=== PATIENT | male | born 1990 | race Caucasian/White ===

== ENCOUNTER 2017-02-05 09:42 | Inpatient (IN) | payer OTHER ==
--- NOTE | ~2017-02-05 | HP ---
Unit #: [id number] #: [id number] Patient: RAFAELA CALDERON [id number] [place] [address] [id number] I MR#: [id number] NAME: RAFAELA CALDERON ROOM: P208 Age: 26 Sex: M Admission Date: 02/05/2017 : 1990 Attending Physician: Alan Villavicencio M.D. Admitting Physician: Alan Villavicencio M.D. Primary Care Physician: Primary Care Physician No HISTORY AND PHYSICAL HISTORY OF PRESENT ILLNESS The patient is a 26-year-old male admitted to [address] [place] [address] on 02/05/2017 to withdrawal from methamphetamines and heroin. PAST MEDICAL HISTORY Hepatitis C. PAST SURGICAL HISTORY The patient denies. SOCIAL HISTORY He is unemployed and homeless. He smokes one pack of cigarettes daily. Drinks a fifth of alcohol per day and uses heroin, methamphetamines and Xanax on a daily basis. FAMILY MEDICAL HISTORY Noncontributory. ALLERGIES No known drug allergies. CURRENT MEDICATIONS The patient is not on any home medications. REVIEW OF SYSTEMS CONSTITUTIONAL: No fever or chills. HEENT: Denies any sore throat, ear pain or runny nose. CARDIOVASCULAR: Denies chest pain, irregular heart rhythm or palpitations. CHEST: Denies shortness of breath or cough. No hemoptysis. GASTROINTESTINAL: Denies nausea, vomiting, diarrhea or chronic constipation. ENDOCRINE: Denies history of increased thirst or urination. No recent significant weight loss or gain. GENITOURINARY: Denies dysuria, frequency, or hematuria. SKIN: Denies any rashes. HEMATOLOGIC: Denies history of increased bleeding or bruising. MUSCULOSKELETAL: Denies any hot, swollen joints. No generalized muscle pain. NEUROLOGIC: Denies problems with vision or speech. No frequent, severe headaches. No numbness, tingling or weakness in any extremities. Denies loss of bladder or bowel control. PHYSICAL EXAM Unit #: [id number] #: [id number] Patient: RAFAELA CALDERON GENERAL: He is awake, alert and oriented in no acute distress. VITAL SIGNS: Temperature 98.6, heart rate 122, respiration 16, blood pressure 136/74. HEIGHT: 6'0". WEIGHT: 169 pounds. SKIN: Warm and dry without rash or lesion. HEENT: Normocephalic. TMs not viewed. Oral and nasal passages clear. Conjunctivae clear. PERRLA. EOMs intact. NECK: Supple without lymphadenopathy or thyromegaly. HEART: Regular rate and rhythm without murmur. LUNGS: Clear. ABDOMEN: Soft, nontender. : Not done. EXTREMITIES: No evidence of cyanosis, clubbing or edema. Moves all without focal deficit. NEUROLOGICAL: Grossly within normal limits. Cranial Nerves: II: Visual fatima are intact. III, IV AND : Extraocular movements are intact. Pupils are equal, round and reactive to light. V: Facial sensation is grossly normal. VII: Facial movements and expression are normal. VIII: Auditory acuity grossly intact. IX, X: Uvula is midline. Phonation is normal. XI: Patient shrugs shoulders and turns head normally. XII: Tongue protrudes in the midline. Sensory and Motor Function: Sensory and motor sensation is grossly normal. Motor: moves all extremities well. IMPRESSION 1. Psychiatric admission. 2. Hepatitis C. 3. Polysubstance abuse. RECOMMENDATIONS Psychiatric per psychiatrist. MEDICAL: No contraindication to participate in facility activities. MEDICAL PROGNOSIS Good. MEDICAL CONDITION Stable. Dictated by... Jj Beck/nela TD: 02/05/2017 21:34 JOB #: [id number] Unit #: [id number] #: [id number] Patient: RAFAELA CALDERON HISTORY AND PHYSICAL Page 1 of 1 X IDALIA ALDRIDGE APRN HISTORY AND PHYSICAL
--- NOTE | ~2017-02-05 | PA ---
Unit #: [id number] #: [id number] Patient: [facility] CALDERON [id number] [facility] [address] [place] [address] [id number] I MR#: [id number] NAME: RAFAELA CALDERON ROOM: P208 Age: 26 Sex: M Admission Date: 02/05/2017 : 1990 Date of Assessment: Attending Physician: Alan Villavicencio M.D. Admitting Physician: Alan Villavicencio M.D. Primary Care Physician: Primary Care Physician No PSYCHIATRIC ASSESSMENT DATE OF SERVICE 02/05/2017. IDENTIFYING DATA Mr. Calderon is a 26-year-old, single, white male, who is a resident of [place], [place], and is known to us from previous encounter, was self-referred to the hospital on a voluntary basis. CHIEF COMPLAINT "I do not want to kill myself, but also see no reason to continue living." HISTORY OF PRESENT ILLNESS Mr. Calderon is a 26-year-old white male with a history of substance abuse and dependence, reporting that he is dependent on methamphetamine and heroin that he is taking over his life and he feels like he has no purpose living anymore and he is tired of hurting and he feels hopeless and helpless and has no support system and does endorse increasing depression, psychomotor retardation, inability to function and having significant consequences because of his addiction, stating that he feels hopeless and helpless and it is hard for him to brush his teeth and does not want to take care of himself and he does not have a plan and stated he would not kill himself, but he is not happy with this life and he is tired of flushed out of the drugs and being homeless and wanted to get treatment and as such, recommendation for inpatient level of care for detox was made and the patient was stepped up to the inpatient unit. SUBSTANCE ABUSE HISTORY The patient reports extensive history of substance abuse and dependence including experimentation with alcohol, cocaine, opioids, amphetamines, benzodiazepines, and methadone and currently it appears that heroin and methamphetamine has been his drug of choice and reports that he has been using a gram of speedball a day. PAST PSYCHIATRIC HISTORY The patient has had a history of inpatient psychiatric and free chemical dependency treatment at [facility] and review of the medical records indicate that currently he is not active in any treatment program, and is not seeing a psychiatrist, and is not taking psychotropic medications. PAST MEDICAL HISTORY Significant for hepatitis C. Unit #: [id number] #: [id number] Patient: RAFAELA CALDERON ALLERGIES No known medication allergies. CURRENT MEDICATIONS None. PERSONAL AND SOCIAL HISTORY A 26-year-old white male, who reports that he is single, unemployed, and essentially homeless and has poor social support system. MENTAL STATUS EXAMINATION Young white male, who was casually dressed with fair personal hygiene, appears to be in no acute distress or discomfort. He was awake and alert on interaction with intact orientation to time, place, and person. His mood was anxious and depressed with a congruent affect. His speech was slow and restricted in content. His thought processes were disorganized with some looseness of associations. He denies any suicidal or homicidal ideations, and also denies any auditory or visual hallucinations. His insight and judgment remain significantly impaired. DIAGNOSTIC IMPRESSION Psychiatric: Opioid dependence, moderate and acute withdrawals; methamphetamine dependence, moderate; opioid-induced mood disorder. Medical: None. Stressors: Moderate psychosocial stressors. TREATMENT PLAN 1. The patient has presented with a history of substance abuse and mood disorder, and has been decompensating. We will need inpatient hospitalization for detoxification, safety, and stabilization. We will start him on detox protocol. We will closely monitor for any worsening withdrawal symptoms. 2. Supportive therapy was provided to the patient. 3. Safe, structured, and nourishing environment will be provided. ESTIMATED LENGTH OF STAY 4 to 5 days. ABILITY TO HELP SELF Limited. WILLINGNESS TO HELP SELF The patient appears to be willing to help self. STRENGTHS 1. Communicative. 2. Cooperative. PROBLEMS 1. Chronic chemical dependency. 2. Chronic dysphoric symptoms. 3. Poor social support system. DISCHARGE CRITERIA This will be contingent upon the patient's ability to go through detox without having any significant withdrawal symptoms and his ability to stay safe to himself, particularly after discharge from the hospital. Unit #: [id number] #: [id number] Patient: RAFAELA CALDERON Dictated by... Sergio Antoine/gonzález TD: 02/06/2017 07:19 JOB #: [id number] PSYCHIATRIC ASSESSMENT Page 1 of 1 X Alan Villavicnecio MD PSYCHIATRIC ASSESSMENT
--- NOTE | ~2017-02-05 | PN ---
Unit #: [id number] #: [id number] Patient: RAFEALA CALDERON [id number] [facility] [address] [place] [address] [id number] I MR#: [id number] NAME: RAFAELA CALDERON ROOM: P208 Age: 26 Sex: M Admission Date: 02/05/2017 : 1990 Attending Physician: Alan Villavicencio M.D. Admitting Physician: Alan Villavicencio M.D. Primary Care Physician: Primary Care Physician Sanam NDIAYE NOTES DATE February 08, 2017 DISCUSSION Mr. Calderon is a 26-year-old white male, who was seen today and chart was reviewed and the case was discussed with the staff. He has been anxious, withdrawn, and seclusive to himself while lying in bed and reports not feeling good and described himself to be in distress and discomfort. Meanwhile, he has been taking the medications and tolerating them fairly well with no reported side effects. MENTAL STATUS EXAMINATION Young white male, who was casually dressed with fair personal hygiene and appears to be in no acute distress or discomfort. He was awake and alert on interaction with intact orientation. His mood is anxious with a congruent affect. He denies any suicidal or homicidal ideations. His insight and judgment remain slightly impaired. TREATMENT PLAN 1. We will continue him on his current medications and treatment protocol, and will monitor his response to the medications, and make further adjustments as needed. 2. We will continue to followup. Dictated by... Sergio Antoine/bairon TD: 02/08/2017 11:43 JOB #: [id number] Unit #: [id number] #: [id number] Patient: RAFAELA CALDERON PEAMELISA PROGRESS NOTES Page 1 of 1 X Alan Villavicencio MD PROGRESS NOTE
--- NOTE | ~2017-02-05 | DS ---
Unit #: [id number] #: [id number] Patient: RAFAELA PRECIADO [id number] [facility] [place] [address] [id number] I MR#: [id number] NAME: RAFAELA PRECIADO ROOM: [facility] Age: 26 Sex: M Admission Date: 02/05/2017 : 1990 Discharge Date: 02/09/2017 Attending Physician: Alan Villavicencio M.D. Primary Care Physician: Primary Care Physician No DISCHARGE SUMMARY IDENTIFYING DATA Mr. Preciado is a 26-year-old white male with history of substance abuse and dependence, who is known to us from previous encounter, was self-referred to the hospital. DISCHARGE DIAGNOSES Psychiatric: Opioid dependence, moderate, in acute withdrawals; methamphetamine dependence, moderate; and opioid-induced mood disorder. Medical: None. Stressors: Moderate psychosocial stressors. HISTORY OF PRESENT ILLNESS Please see initial psychiatric evaluation for details. PAST PSYCHIATRIC HISTORY Please see initial psychiatric evaluation for details. PAST MEDICAL HISTORY Please see initial psychiatric evaluation for details. HOSPITAL COURSE The patient was admitted [facility] the [facility] and was oriented to the hospital environment. Routine p.r.n. medications were initiated and he was started on the opioid detox protocol and was closely monitored. He was taking the medications regularly and was tolerating them fairly well and was able to show a decent and therapeutic response and was willing to continue treatment on an outpatient basis and as such, it was decided that he will be discharged and will continue treatment on an outpatient basis. DISCHARGE MEDICATIONS None. DISCHARGE CONDITION Stable. PROGNOSIS Fair. Dictated by... Alan Villavicencio M.D. IAA/modl Unit #: [id number] #: [id number] Patient: RAFAELA PRECIADO TD: 03/07/2017 20:59 JOB #: [id number] DISCHARGE SUMMARY Page 1 of 1 X Alan Villavicencio MD X DISCHARGE SUMMARY
--- NOTE | ~2017-02-05 | PN ---
Unit #: [id number] #: [id number] Patient: RAFAELA CALDERON [id number] [facility] [address] [place] [address] [id number] I MR#: [id number] NAME: RAFAELA CALDERON ROOM: P208 Age: 26 Sex: M Admission Date: 02/05/2017 : 1990 Attending Physician: Alan Villavicencio M.D. Admitting Physician: Alan Villavicencio M.D. Primary Care Physician: Primary Care Physician Sanam CROFT PROGRESS NOTES DATE OF SERVICE: 02/06/2017 SUBJECTIVE Mr. Calderon is a 26-year-old white male who was seen today and chart was reviewed, and case was discussed with the staff. He has been anxious, withdrawn, and rather seclusive to himself. Meanwhile, he has been cooperative with treatment recommendations, and has been taking the medications and tolerating them fairly well with no reported side effects. MENTAL STATUS EXAMINATION Young white male who was casually dressed with fair personal hygiene, appears to be in no acute distress or discomfort. He was awake and alert on interaction with intact orientation. His mood was anxious with a congruent affect. He denies any suicidal or homicidal ideations. His insight and judgment remain slightly impaired. TREATMENT PLAN 1. We will continue him on his current medications and treatment protocol. We will monitor his response to medications and make further adjustments as needed. 2. We will continue to follow up. Dictated by... Sergio Antoine/orlandol TD: 02/06/2017 20:50 JOB #: [id number] [facility] PROGRESS NOTES Page 1 of 1 X Alan Villavicencio MD PROGRESS NOTE
--- NOTE | ~2017-02-05 | PN ---
Unit #: [id number] #: [id number] Patient: RAFAELA PRECIADO [id number] [facility] [address] [place] [address] [id number] I MR#: [id number] NAME: RAFAELA PRECIADO ROOM: P208 Age: 26 Sex: M Admission Date: 02/05/2017 : 1990 Attending Physician: Alan Villavicencio M.D. Admitting Physician: Alan Villavicencio M.D. Primary Care Physician: Primary Care Physician Sanam CROFT PROGRESS NOTES DATE 02/09/2017 DISCUSSION Mr. Preciado is a 26-year-old white male with substance abuse and mood disorder who was seen today and chart was reviewed and case was discussed with the staff. He reports feeling better and has been showing improvement in his detox symptoms and is cooperative with treatment recommendations and has been taking medications and tolerating them fairly well. MENTAL STATUS EXAMINATION Young white male who was casually dressed with fair personal hygiene and appears to be in no acute distress or discomfort. He was awake and alert on interaction with intact orientation. His mood was anxious with congruent affect. He denies any suicidal or homicidal ideations and also denies any auditory or visual hallucinations. His insight and judgement remains slightly impaired. TREATMENT PLAN 1. Will continue on his current medications and treatment protocol. Will monitor his response to the medications and make further adjustments as needed. 2. Will continue to follow up. Dictated by... Alan Villavicencio M.D. IAA/anaya TD: 02/09/2017 18:27 JOB #: [id number] Unit #: [id number] #: [id number] Patient: RAFAELA PRECIADO PROGRESS NOTES Page 1 of 1 X Alan Villavicencio MD PROGRESS NOTE
--- NOTE | ~2017-02-05 | PN ---
Unit #: [id number] #: [id number] Patient: RAFAELA CALDERON [id number] [facility] [address] [place] [address] [id number] I MR#: [id number] NAME: RAFAELA CALDERON ROOM: P208 Age: 26 Sex: M Admission Date: 02/05/2017 : 1990 Attending Physician: Alan Villavicencio M.D. Admitting Physician: Alan Villavicencio M.D. Primary Care Physician: Primary Care Physician Sanam CROFT PROGRESS NOTES DATE 02/07/2017 DISCUSSION Mr. Calderon is a 26-year-old white male who was seen today and chart was reviewed and case was discussed with the staff. He has been anxious, withdrawn though has not shown any agitation, irritability or behavioral problems and has been cooperative with treatment recommendations and has been taking medications and tolerating them fairly well. There still appears to be significant distress and discomfort as he goes through detox. MENTAL STATUS EXAMINATION Young white male who was casually dressed with fair personal hygiene and appears to be in no acute distress or discomfort. He was awake and alert on interaction with intact orientation. His mood was anxious and depressed with congruent affect. He denies any suicidal or homicidal ideations and also denies any auditory or visual hallucinations. His insight and judgement remains slightly impaired. TREATMENT PLAN 1. Will continue on his current medications and treatment protocol. Will monitor his response to the medications and make further adjustments as needed. 2. Will continue to follow up. Dictated by... Sergio Antoine/anaya TD: 02/07/2017 20:58 JOB #: [id number] Unit #: [id number] #: [id number] Patient: RAFAELA CALDERON CRISTIANOMELISA PROGRESS NOTES Page 1 of 1 X Alan Villavicencio MD PROGRESS NOTE
[~2017-02-05 09:42] MED LIST: AUGMENTIN PO; BACTRIM DS TABL1 TA1 PO; BACTRIM DS TABL1 TAB PO; BACTROBAN22 GM TP; BENZACLIN GEL50 GM TOP; DARVOCET-N 1001 TAB PO; KEFLEX PO; KEFLEX500 MG PO; LORTAB 5/500 TA1 TA1 PO; NEURONTIN300 MG PO; NO MEDICATIONS; PEPCID AC20 MG PO; PHENERGAN PO; PHENERGAN25 M1 PO; VICODIN 5/1 TAB 5/50 PO; VICODIN 5/500 T1 TAB PO; VOLTAREN75 MG PO; ZOFRAN ODT4 MG PO; ZOLOFT PO
[2017-02-06 09:30] LABS: BASOPHIL% 0.6 % (0-2.5); EOSINOPHIL# 0.2 X10e3 (0-0.7); EOSINOPHIL% 3.5 % (0.0-7.0); HEMATOCRIT 43.3 % (38.0-50.0); HEMOGLOBIN 14.5 gm/dL (13.0-16.0); LYMPHOCYTE# 1.5 X10e3 (1.0-3.5); MEAN CELL VOLUME 84.1 FL (83-96); MEAN CORPUSCULAR HEMOGLOBIN 28.2 PG (28-34); MEAN CORPUSCULAR HGB CONC 33.5 g/dL (30-36); MEAN PLATELET VOLUME 8.8 FL (6.5-11.5); MONOCYTE# 0.2 X10e3 (0-1.0); MONOCYTE% 4.5 % (3.0-12.0); NEUTROPHIL# 3.5 X10e3 (1.5-7.1); NEUTROPHIL% 64.4 % (40-75); PLATELET COUNT 277 X10e3 (140-420); RED BLOOD COUNT 5.15 X10e (3.90-5.60); RED CELL DISTRIBUTION WIDTH 13.4 % (11.0-15.5); WHITE BLOOD COUNT 5.5 X10e3 (4.0-10.5)
[2017-02-06 09:35] LABS: DIFF IND NO
[2017-02-06 09:44] LABS: ALBUMIN SERUM 4.2 g/dL (3.5-5.0); BILIRUBIN,TOTAL 0.5 mg/dL (0.2-2.0); BUN/CREATININE RATIO 12.22; CALCIUM SERUM 9.9 mg/dL (8.4-10.2); CREATININE SERUM 0.9 mg/dL (0.6-1.4); GLOM FILT RATE Estimated 117.5 mL/min (>60); POTASSIUM 4.5 mmol/L (3.5-5.1); PROTEIN TOTAL SERUM 7.7 g/dL (6.0-8.3)
[2017-02-06 12:40] LABS: URINE APPEARANCE CLEAR; URINE BILIRUBIN NEG (NEG); URINE BLOOD NEG (NEG); URINE COLOR YELLOW; URINE GLUCOSE NEG (NEG); URINE KETONE NEG (NEG); URINE LEUKOCYTE ESTERASE NEG (NEG); URINE NITRATE NEG (NEG); URINE PH 7.5 (5-8); URINE PROTEIN NEG (NEG); URINE SPECIFIC GRAVITY 1.015 (1.003-1.035)
[2017-02-06 13:02] LABS: AMPHETAMINE POS (NEG); BARBITURATES NEG (NEG); BENZODIAZEPINES NEG (NEG); COCAINE NEG (NEG); MARIJUANA NEG (NEG); OPIATES POS (NEG); TRICYCLIC ANTIDEPRESSANTS NEG (NEG); U METHADONE NEG (NEG)
== END 2017-02-09 14:13 | DRG 897 ==
LOC: P2S 09:42 → POF 10:00 → P2S 10:07
PROVIDERS: Psychiatry & Neurology Psychiatry
PROC: HZ2ZZZZ Detoxification Services for Substance Abuse Treatment (ICD-10-PCS; principal; 2017-02-05)
DX: F11.23 Opioid dependence with withdrawal (principal); F15.20 Other stimulant dependence, uncomplicated; F11.24 Opioid dependence with opioid-induced mood disorder; Z59.0 Homelessness; B19.20 Unspecified viral hepatitis C without hepatic coma; F17.210 Nicotine dependence, cigarettes, uncomplicated
CPT/HCPCS: 80053; 80307; 81003; 85025; 86592

== ENCOUNTER 2017-03-08 15:02 | Emergency (ER) | payer OTHER | END 2017-03-08 17:50 | disposition home or self-care (01) | LOC: CED 15:02 | DX: F15.129 Other stimulant abuse with intoxication, unspecified (principal); F17.210 Nicotine dependence, cigarettes, uncomplicated | CPT/HCPCS: 99282 ==

== ENCOUNTER 2017-06-23 23:02 | Emergency (ER) | payer OTHER ==
[~2017-06-23] VITALS: Ht 182.9 cm; Wt 79.4 kg
== END 2017-06-24 02:25 | disposition home or self-care (01) ==
LOC: CED 23:02
DX: L03.116 Cellulitis of left lower limb (principal); Z86.19 Personal history of other infectious and parasitic diseases; F17.210 Nicotine dependence, cigarettes, uncomplicated; F15.10 Other stimulant abuse, uncomplicated
CPT/HCPCS: 99283

== ENCOUNTER 2017-07-01 05:05 | Emergency (ER) | payer OTHER ==
[~2017-07-01] VITALS: Ht 182.9 cm; Wt 79.4 kg
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
== END 2017-07-01 06:43 | disposition home or self-care (01) ==
LOC: SED 05:05
DX: S20.211A Contusion of right front wall of thorax, initial encounter (principal); S13.4XXA Sprain of ligaments of cervical spine, initial encounter; Y09 Assault by unspecified means
CPT/HCPCS: 71100; 72040; 99283